=== PATIENT | female | born 1960 | race Caucasian/White ===

== ENCOUNTER → 2018-01-13 | Outpatient (CLI) | payer BC ==
[~2018-01-13] MED LIST: DAILY MULTIPLE1 EACH PO; LISINOPRIL10 MG PO; METOPROLOL SUCC50 MG PO
--- NOTE | 2018-01-13 13:12 | Diagnostic Imaging Report ---
PROCEDURE:US GALLBLADDER COMPARISON:None. INDICATIONS:Abdomen Pain TECHNIQUE: Melgar-scale and color doppler transverse and longitudinal images of the right upper quadrant of the abdomen were obtained. FINDINGS: Liver: 13.3 cm in right mid-clavicular line. Normal echogenicity. No masses. Main portal vein: 1 cm. Hepatopetal flow. Gallbladder: Multiple mobile gallstones. Wall thickening 0.6 cm. Common Bile Duct: 0.4 cm Sonographic Perdomo's sign: Negative Right kidney: 10.6 cm. Mildly increased echogenicity. No solid masses. Questionable minimal hydronephrosis. 3.1 x 3.7 x 2.8 cm mid pole parapelvic cyst. Pancreas: The visualized portions are unremarkable. Inferior vena cava: Patent Aorta: Within normal limits. Distal aorta is not well visualized. Ascites: None in the right upper quadrant of the abdomen. CONCLUSION: Cholelithiasis with mild wall gallbladder thickening. No pericholecystic fluid and negative Perdomo's sign. Questionable minimal right hydronephrosis. Mildly increased right renal echogenicity, suggestive of medical renal disease. Dictated by: Pietro Jimenez M.D. on 01/13/2018 at 13:13 Electronically approved by: Pietro Jimenez M.D. on 01/13/2018 at 13:13
== END ==
LOC: US 12:01
PROVIDERS: ATTEND Family Medicine
DX: R10.9 Unspecified abdominal pain (principal)
CPT/HCPCS: 76705

== ENCOUNTER → 2018-02-13 | Day surgery (SDC) | payer BC ==
[~2018-02-13] MED LIST changes: +BUPIVACAINE 0.25% 30ML SDV INJ ONE; +DEXAMETHASONE SOD PHOS INJ 4 MG/ML VIAL ONE; +FENTANYL CITRATE/PF 100MCG/2 ML INJ ONE; +GLYCOPYRROLATE INJ 1MG/ 5 ML SYR ONE; +HYDROCODONE/APAP 7.5MG-325MG 1 EA TAB ONE; +LIDOCAINE HCL 2% LOCAL INJ 5 ML SDV VIAL INJ ONE; +MIDAZOLAM HCL 2 MG/2 ML VIAL ONE; +NEOSTIGMINE 5 MG/5ML SYR ONE; +ONDANSETRON HCL INJ 2 MG/ML VIAL ONE; +PROPOFOL IV EMULSION 10 MG/ML 20 ML VIAL ONE; +ROCURONIUM BROMIDE 10 MG/ML 5ML VIAL ONE; +SEVOFLURANE INHAL SOLN 250 ML PEN BTL ONE
--- NOTE | 2018-02-13 15:35 | Operative Report ---
DATE OF PROCEDURE: February 13, 2018 PREOPERATIVE DIAGNOSIS: Cholecystitis and cholelithiasis. POSTOPERATIVE DIAGNOSIS: Cholecystitis and cholelithiasis plus intraabdominal adhesions. OPERATION PERFORMED: 1. Diagnostic laparoscopy. 2. Laparoscopic lysis of adhesions. 3. Laparoscopic cholecystectomy. ASSISTANTS: Dr. Sumeet Man and Sonja BLUM. ANESTHESIA: General. COMPLICATIONS: None. ESTIMATED BLOOD LOSS: Minimal. DESCRIPTION OF PROCEDURE: With the patient lying in bed in the supine position under good general endotracheal anesthesia, the abdomen was prepped with Betadine solution and draped in the usual manner. A Veress needle was introduced into the umbilicus and pneumoperitoneum was established without any difficulty. An 11 mm trocar was placed into the umbilicus and a 10 mm video laparoscope was placed into the intraabdominal cavity. Under direct vision, three 5 mm trocars were placed in the right subcostal region and extra 5 mm trocar had to be placed in the left upper abdomen to be able to retract redundant stomach and colon. Laparoscopy at this point revealed the gallbladder was totally covered up with adhesions and the right lobe of the liver was totally covered up with fused adhesions to the transverse colon and the omentum. All of these adhesions had to be slowly and carefully taken down off of the right lobe of the liver in order for us to be able to actually see the gallbladder. These were rather dense adhesions. Nonetheless all of the adhesions were taken down. We were then able to visualize the top of the gallbladder which was then retracted and the stomach and duodenum were also stuck to the gallbladder and these were slowly and carefully and retracted downward. After this was done, the peritoneum overlying the neck of the gallbladder was then opened and the cystic duct was identified. The cystic duct was then followed to its junction with the common duct. The cystic duct was then circumferentially dissected away from the common duct, doubly clipped and divided. The cystic artery had an anterior and a posterior branch and both of these were individually clipped and divided. The gallbladder was then slowly and carefully taken off the liver bed using the cautery scissors and perfect hemostasis was ascertained. The gallbladder was grasped through the umbilical port and removed without any difficulty. Video laparoscopy was then again carried out. The liver bed was found to be perfectly dry. All of the excess fluid was aspirated. The pneumoperitoneum was evacuated and all the trocars were removed under direct vision. The midline fascia at the umbilicus was then closed with a [id number]-[id number] of 0 Vicryl. All layers were infiltrated on the way out with solution 1/4 percent Marcaine. Subcutaneous tissue was approximated with 3-0 Vicryl and the skin was closed with subcuticular 5-0 Vicryl. Benzoin, Steri-Strips and Band-Aids were applied. The sponge, lap and needle count was correct. The patient tolerated the procedure well and returned to the recovery room in stable condition. Job#: [id number] HANS
== END | disposition home or self-care (01) ==
LOC: OR 11:29
PROVIDERS: ATTEND Surgery
DX: K80.10 Calculus of gallbladder with chronic cholecystitis without obstruction (principal); K82.8 Other specified diseases of gallbladder; Q43.8 Other specified congenital malformations of intestine; K31.89 Other diseases of stomach and duodenum; I10 Essential (primary) hypertension; B19.20 Unspecified viral hepatitis C without hepatic coma; Z87.891 Personal history of nicotine dependence
CPT/HCPCS: 47562; 88304; C1766; J1100; J2001; J2250; J2405; J3490

== ENCOUNTER → 2018-05-18 | Outpatient (CLI) | payer BC ==
[~2018-05-18] MED LIST changes: -BUPIVACAINE 0.25% 30ML SDV INJ ONE; -DEXAMETHASONE SOD PHOS INJ 4 MG/ML VIAL ONE; -FENTANYL CITRATE/PF 100MCG/2 ML INJ ONE; -GLYCOPYRROLATE INJ 1MG/ 5 ML SYR ONE; -HYDROCODONE/APAP 7.5MG-325MG 1 EA TAB ONE; -LIDOCAINE HCL 2% LOCAL INJ 5 ML SDV VIAL INJ ONE; -MIDAZOLAM HCL 2 MG/2 ML VIAL ONE; -NEOSTIGMINE 5 MG/5ML SYR ONE; -ONDANSETRON HCL INJ 2 MG/ML VIAL ONE; -PROPOFOL IV EMULSION 10 MG/ML 20 ML VIAL ONE; -ROCURONIUM BROMIDE 10 MG/ML 5ML VIAL ONE; -SEVOFLURANE INHAL SOLN 250 ML PEN BTL ONE
== END ==
LOC: MAMMO 11:07
PROVIDERS: ATTEND Family Medicine
DX: Z12.31 Encounter for screening mammogram for malignant neoplasm of breast (principal)
CPT/HCPCS: 77067

== ENCOUNTER → 2019-05-21 | Outpatient (CLI) | payer BC ==
--- NOTE | 2019-05-25 09:16 | Diagnostic Imaging Report ---
#[id number] - [id number] #BILATERAL DIGITAL SCREENING MAMMOGRAM WITH CAD: 05/21/2019 CLINICAL: Routine screening. Comparison is made to exams dated: 05/18/2018 mammogram, 05/05/2017 mammogram, 04/16/2016 mammogram, 04/23/2015 mammogram and 02/28/2014 mammogram - [facility]. The tissue of both breasts is heterogeneously dense. This may lower the sensitivity of mammography. Current study was also evaluated with a Computer Aided Detection (CAD) system. There are benign lymph nodes in both breasts. There also are benign calcifications in the right breast. There is a cluster of calcifications in the right breast at 11 o'clock posterior depth. This is increased in size. No other significant masses, calcifications, or other findings are seen in either breast. There has been no significant interval change. IMPRESSION: INCOMPLETE: NEEDS ADDITIONAL IMAGING EVALUATION The cluster of calcifications in the right breast is indeterminate. Magnification views as well as a possible ultrasound are recommended. The patient will be contacted by the Mammography Department to schedule this appointment. NORRIS delgado/janis:05/23/2019 11:46:50 Gambling Dealer: April MONTEZ(Osmani)([place]), [facility] letter sent: Additional Imaging Needed Mammogram BI-RADS: 0 Indeterminate
== END ==
LOC: MAMMO 10:23
PROVIDERS: ATTEND Family Medicine
DX: Z12.31 Encounter for screening mammogram for malignant neoplasm of breast (principal)
CPT/HCPCS: 77067

== ENCOUNTER → 2019-06-04 | Outpatient (CLI) | payer BC ==
--- NOTE | 2019-06-05 09:13 | Diagnostic Imaging Report ---
#[id number] - [id number] #UNILATERAL RIGHT DIGITAL DIAGNOSTIC MAMMOGRAM WITH MEDIOLATERAL SPOT COMPRESSION: 06/04/2019 Comparison is made to exams dated: 05/21/2019 mammogram, 05/18/2018 mammogram, 05/05/2017 mammogram and 04/16/2016 mammogram - [facility]. Current study contains 3 films. The tissue of the right breast is heterogeneously dense. This may lower the sensitivity of mammography. There are benign clustered punctate calcifications in the right breast at 11 o'clock middle depth. These are seen in additional views. These are not significantly changed. No other significant masses or calcifications are seen in the breast. IMPRESSION: BENIGN There is no mammographic evidence of malignancy. A 1 year screening mammogram is recommended. The patient will be notified by letter of the results. SCARLETT TALLEY M.D. ct/penrad:06/04/2019 19:01:01 Senior Environmental Consultant: April MONTEZ(Osmani)([place]), [facility] letter sent: Normal Exam Mammogram BI-RADS: 2 Benign
== END ==
LOC: MAMMO 12:43
PROVIDERS: ATTEND Family Medicine
DX: R92.1 Mammographic calcification found on diagnostic imaging of breast (principal)

== ENCOUNTER → 2020-06-06 | Outpatient (CLI) | payer BC | LOC: MAMMO 09:33 | PROVIDERS: ATTEND Family Medicine | DX: Z12.31 Encounter for screening mammogram for malignant neoplasm of breast (principal) | CPT/HCPCS: 77067 ==

== ENCOUNTER → 2020-06-25 | Outpatient (CLI) | payer BC ==
--- NOTE | 2020-06-26 08:11 | Diagnostic Imaging Report ---
#[id number] - [id number] #UNILATERAL LEFT DIGITAL DIAGNOSTIC MAMMOGRAM WITH SPOT COMPRESSION AND MAGNIFICATION: 06/25/2020 Comparison is made to exams dated: 06/06/2020 mammogram, 06/04/2019 mammogram and 05/21/2019 mammogram - [facility]. The tissue of the left breast is heterogeneously dense. This may lower the sensitivity of mammography. There are benign calcifications in the left breast. No significant masses, calcifications, or other findings are seen in the breast. There has been no significant interval change. IMPRESSION: BENIGN There is no mammographic evidence of malignancy. A 1 year screening mammogram is recommended. The patient will be notified by letter of the results. NORRIS delgado/janis:06/25/2020 16:47:50 Machine Attendant: April MONTES)(M), [facility] letter sent: Compared to Prior B9 Mammogram BI-RADS: 2 Benign
--- NOTE | 2020-06-27 16:55 | Diagnostic Imaging Report ---
#[id number] - USBRELIMLT ULTRASOUND OF THE LEFT BREAST : 06/25/2020 No prior exams were available for comparison. Color flow and real-time ultrasound were performed on the left breast. Szymanski scale images of the real-time examination were reviewed. No abnormalities were seen sonographically in the left breast. IMPRESSION: NEGATIVE There is no sonographic evidence of malignancy. A 1 year screening mammogram is recommended. NORRIS delgado/janis:06/27/2020 16:09:22 Adapted Physical Education Teacher: Xavier Montgomery [facility], [facility] letter sent: Normal Exam Ultrasound BI-RADS: 1 Negative
== END ==
LOC: MAMMO 09:30
PROVIDERS: ATTEND Family Medicine
DX: R92.8 Other abnormal and inconclusive findings on diagnostic imaging of breast (principal)